=== PATIENT | female | born 1970 | race Caucasian/White ===

== ENCOUNTER → 2016-02-24 | Outpatient (CLI) | payer OTHER ==
[~2016-02-24] MED LIST: CIPRO500 MG PO; DARVOCET-N 1001 TAB PO
== END | disposition home or self-care (01) ==
LOC: RAD 15:41
DX: J09.X2 Influenza due to identified novel influenza A virus with other respiratory manifestations (principal); R05 Cough

== ENCOUNTER → 2017-01-29 | Outpatient (CLI) | payer OTHER ==
[2017-01-29 11:26] LABS: BASO # 0.1 10*3/uL (0.0-0.1); BASO % 1.4 % (0.0-1.0); EOS # 0.1 10*3/uL (0.0-0.4); EOS % 1.7 % (1.0-4.0); HEMATOCRIT 39.9 % (37.0-47.0); HEMOGLOBIN 13.5 g/dl (12.0-16.0); LYMPH % 38.2 % (27.0-41.0); MEAN CELL VOLUME 90.3 fl (81.0-99.0); MEAN CORPUSCULAR HGB 30.5 pg (27.0-31.0); MEAN CORPUSCULAR HGB CONC 33.8 g/dl (33.0-37.0); MEAN PLATELET VOLUME 9.8 fl (9.6-12.3); MONO # 0.4 10*3/uL (0.1-1.0); MONO % 7.4 % (3.0-9.0); NEUT # 2.6 10*3/uL (2.3-7.9); NEUT % 51.1 % (47.0-73.0); PLATELET COUNT AUTOMATED 290 10*3/uL (130-400); RED BLOOD COUNT 4.42 10*6/uL (4.10-5.10); RED CELL DISTRI WIDTH 12.9 % (0-14.5); WHITE BLOOD COUNT 5.2 10*3/uL (4.8-10.8)
[2017-01-29 11:50] LABS: ALBUMIN 3.7 gm/dl (3.1-4.5); ALKALINE PHOSPHATASE 77 U/L (45-117); BUN 11 mg/dl (7-24); CHLORIDE 105 mmol/L (98-107); CREATININE 0.76 mg/dL (0.55-1.02); IRON 102 ug/dL (50-170); POTASSIUM 3.9 mmol/L (3.5-5.1); SGOT/AST 19 IU/L (3-35); SGPT/ALT 23 U/L (12-78); SODIUM 139 mmol/L (136-145); TOTAL IRON BINDING CAPACITY 295 ug/dl (250-450); TOTAL PROTEIN 7.3 gm/dL (6.4-8.2)
[2017-01-29 13:39] LABS: VITAMIN D, 25-HYDROXY 36.5 ng/mL (30-100)
[2017-01-29 13:40] LABS: FERRITIN 69.1 ng/mL (10.0-291.0)
== END | disposition home or self-care (01) ==
LOC: LAB 10:58
PROVIDERS: Physician Assistant Surgical
DX: E56.9 Vitamin deficiency, unspecified (principal); E55.9 Vitamin D deficiency, unspecified; R63.5 Abnormal weight gain; R53.82 Chronic fatigue, unspecified

== ENCOUNTER → 2018-02-05 | Outpatient (CLI) | payer BC | END | disposition home or self-care (01) | LOC: RAD 15:14 | DX: M25.531 Pain in right wrist (principal) ==

== ENCOUNTER → 2019-09-29 | Outpatient (CLI) | payer BC ==
[~2019-09-29] MED LIST changes: +COLACE100 MG PO; +ESCITALOPRAM OXA5 MG PO; +MELOXICAM15 MG PO; +METHOTREXATE S2.5 M1 PO; +NATURE'S BLEND F1 MG PO; +NORCO 5-325 TA1 EACH PO; +ZOFRAN4 MG PO
== END | disposition home or self-care (01) ==
LOC: RAD 13:47
DX: S92.911A Unspecified fracture of right toe(s), initial encounter for closed fracture (principal); X58.XXXA Exposure to other specified factors, initial encounter; Y93.89 Activity, other specified; Y92.89 Other specified places as the place of occurrence of the external cause; Y99.8 Other external cause status

== ENCOUNTER → 2020-04-02 | Outpatient (CLI) | payer BC | END | disposition home or self-care (01) | LOC: RAD 15:28 | PROVIDERS: ATTEND Family Medicine | DX: M25.562 Pain in left knee (principal) ==

== ENCOUNTER → 2021-06-06 | Outpatient (CLI) | payer BC | END | disposition home or self-care (01) | LOC: RAD/SH 01:21 | PROVIDERS: ATTEND Family Medicine | DX: Z12.31 Encounter for screening mammogram for malignant neoplasm of breast (principal) ==

== ENCOUNTER → 2021-06-30 | Outpatient (CLI) | payer BC | END | disposition home or self-care (01) | LOC: RAD/SH 06-17 10:00 | PROVIDERS: ATTEND Family Medicine | DX: R13.12 Dysphagia, oropharyngeal phase (principal); R09.89 Other specified symptoms and signs involving the circulatory and respiratory systems ==

== ENCOUNTER → 2021-08-11 | Day surgery (SDC) | payer BC ==
[~2021-08-11] VITALS: Ht 167.6 cm; Wt 91.2 kg
[~2021-08-11] MED LIST changes: +LEUCOVORIN CALC10 MG PO; +PERCOCET 5-3251 EACH PO
[2021-08-11 09:54] VITALS: BP 114/81
[2021-08-11 12:20] VITALS: BP 122/79
[2021-08-11 12:35] VITALS: BP 135/94
[2021-08-11 12:50] VITALS: BP 138/90
[2021-08-11 13:06] VITALS: BP 122/69
== END | disposition home or self-care (01) ==
LOC: SDC 08-08 13:15
PROVIDERS: ATTEND Surgery
DX: L02.91 Cutaneous abscess, unspecified (principal); L92.8 Other granulomatous disorders of the skin and subcutaneous tissue; Z98.890 Other specified postprocedural states; M06.9 Rheumatoid arthritis, unspecified

== ENCOUNTER → 2021-12-09 | Outpatient (CLI) | payer OTHER, BC | END | disposition home or self-care (01) | LOC: RAD 14:01 | PROVIDERS: ATTEND Family Medicine | DX: S42.402D Unspecified fracture of lower end of left humerus, subsequent encounter for fracture with routine healing (principal); M25.532 Pain in left wrist; X58.XXXD Exposure to other specified factors, subsequent encounter ==